=== PATIENT | female | born 1990 ===

== ENCOUNTER 2020-07-12 07:23 | Inpatient (IN) | payer SELFPAY ==
[2020-07-12] MEDS ORDERED: LACTATED RINGERS 1,000 ML ONE ×2 (08:09→10:21)
[2020-07-12] MEDS ORDERED: FAMOTIDINE 20 MG/2 ML INJ IV ONE ×2 (08:27→09:00)
--- NOTE | 2020-07-12 08:47 | Anesthesia Day of Surgery ---
Anesthesia Day of Surgery - Day of Surgery Patient Examined: Yes Patient H&P Reviewed: Yes Patient is NPO: Yes Beta Blockers: No Cardiac Clearance: No Pulmonary Clearance: No Nam's Test: N/A
--- NOTE | 2020-07-12 08:49 | Anesthesia Consultation ---
Anesthesia Consult and Med Hx Date of service: 07/12/20 - Airway Anesthetic Teeth Evaluation: Poor, Chipped ROM Head & Neck: Adequate Mental/Hyoid Distance: Adequate Mallampati Class: Class II Intubation Access Assessment: Possibly Difficult - Pulmonary Exam CTA: Yes - Cardiac Exam Cardiac Exam: RRR - Pre-Operative Health Status ASA Pre-Surgery Classification: ASA2, Emergency Proposed Anesthetic Plan: Spinal - Pre-Anesthesia Comment Pre-Anesthesia Comments: csection x2 . No anesthesia complications - Pulmonary Hx Smoking: No Hx Asthma: No Hx Respiratory Symptoms: No SOB: No COPD: No Home Oxygen Therapy: No Hx Pneumonia: No Hx Sleep Apnea: No - Cardiovascular System Hx Hypertension: No Hx Coronary Artery Disease: No Hx Heart Attack/AMI: No Hx Angina: No Hx Percutaneous Transluminal Coronary Angioplasty (PTCA): No Hx Cardia Arrhythmia: No Hx Pacemaker: No Hx Internal Defibrillator: No Hx Valvular Heart Disease: No Hx Heart Murmur: No Hx Peripheral Vascular Disease: No - Central Nervous System Hx Neuromuscular Disorder: No Hx Seizures: No CVA: No Hx Back Pain: Yes Hx Psychiatric Problems: No - Gastrointestinal Hx Ulcer: No Hx Gastroesophageal Reflux Disease: Yes - Endocrine Hx Renal Disease: No Hx End Stage Renal Disease: No Hx Cirrhosis: No Hx Liver Disease: No Hx Insulin Dependent Diabetes: No Hx Non-Insulin Dependent Diabetes: No Hx Thyroid Disease: No Hx Hypothyroidism: No Hx Hyperthyroidism: No - Hematic Hx Anemia: No Hx Sickle Cell Disease: No - Other Systems Hx Alcohol Use: No Hx Substance Use: No Hx Cancer: No Hx Obesity: Yes
[2020-07-12] MEDS ORDERED: ONDANSETRON 4 MG/2 ML INJ IV PRN (08:50)
[2020-07-12] MEDS ORDERED: NALOXONE 0.4 MG/1 ML INJ IV PRN ×2 (08:50→11:12)
[2020-07-12] MEDS ORDERED: HYDROmorphone 1 MG/1 ML INJ IV PRN (08:50)
[2020-07-12 08:56] LABS: Basophils # (Auto) 0.1 K/mm3 (0.0-0.1); Basophils % (Auto) 0.9 % (0.0-1.8); Eosinophils # (Auto) 0.1 K/mm3 (0.0-0.4); Eosinophils % (Auto) 0.8 % (0.0-4.3); Hematocrit 33.4 % (30.3-42.9); Hemoglobin 10.6 gm/dl (10.1-14.3); Lymphocytes # (Auto) 2.6 K/mm3 (1.2-5.4); Lymphocytes % (Auto) 23.4 % (13.4-35.0); Mean Corpuscular HGB Conc 32 % (30-34); Monocytes # (Auto) 0.5 K/mm3 (0.0-0.8); Monocytes % (Auto) 4.7 % (0.0-7.3); Platelet Count 363 K/mm3 (140-440); Red Cell Distribution Width 17.4 % (13.2-15.2)
[2020-07-12 08:57] LABS: Mean Corpuscular Volume 63 fl (79-97)
[2020-07-12] MEDS ORDERED: BICITRA ORAL LIQD 30ML PO ONE (09:00)
[2020-07-12] MEDS ORDERED: ceFAZolin/Water 2 GM/20 ML 2 GM/20 ML SYRINGE IV NR (09:00)
[2020-07-12] MEDS ORDERED: OXYTOCIN DRIP 30 UNITS/500 ML BAG IV SCH ×2 (09:00→12:00)
[2020-07-12] MEDS ORDERED: METOCLOPRAMIDE 10 MG/2 ML INJ IV ONE (09:00)
[2020-07-12] MEDS ORDERED: ONDANSETRON 4 MG/2 ML INJ ONE (09:02)
[2020-07-12] MEDS ORDERED: DEXMEDETOMIDINE 200 MCG/2 ML VIAL IV ONE (09:02)
[2020-07-12] MEDS ORDERED: BUPIVACAINE /DEX-WATER 0.75% (2 ML) AMPULE INFILTRATI ONE (09:03)
[2020-07-12] MEDS: LACTATED RINGERS 1,000 ML IV SCH ×2 (09:15→18:35)
--- NOTE | 2020-07-12 09:23 | History and Physical Report ---
History of Present Illness Date of examination: 07/12/20 Date of admission: 07/12/20 08:38 Chief complaint: previous sectionx2 History of present illness: 30yo at 39.6 weeks in active labor, previous c/sectionx2 Patient of [facility] PNR in chart Past History Past Surgical History: section Social history: no significant social history - Obstetrical History Expected Date of Delivery: 07/13/20 Actual Gestation: 39 Week(s) 6 Day(s) : 4 Para: 3 Medications and Allergies Allergies Allergy/AdvReac Type Severity Reaction Status Date / Time No Known Allergies Allergy Verified 07/12/20 07:36 Home Medications Medication Instructions Recorded Confirmed Last Taken Type Ibuprofen [Motrin] 600 mg PO Q8H PRN #60 tablet 07/12/20 Unknown Rx oxyCODONE /ACETAMINOPHEN [Percocet 1 tab PO Q6HR PRN #20 tablet 07/12/20 Unknown Rx 5/325] Active Meds: Active Medications Hydromorphone HCl (Dilaudid) 0.5 mg IV Q5M PRN PRN Reason: BREAK Lactated Ringer's (Lactated Ringers) 1,000 mls @ 2,250 mls/hr IV PREOP ARCHIE Stop: 07/13/20 09:27 Last Admin: 07/12/20 09:15 Dose: 2,250 mls/hr Documented by: Oxytocin/Sodium Chloride (Pitocin/Ns 30 Unit/500ml) 30 units in 500 mls @ 0 mls/hr IV TITR ARCHIE; Protocol Cefazolin Sodium (Ancef/Sterile Water 2 Gm/20 Ml) 2 gm in 20 mls @ 80 mls/hr IV PREOP NR; Protocol Stop: 07/12/20 23:59 Naloxone HCl (Naloxone) 0.2 mg IV Q2MIN PRN PRN Reason: Res Rate </= 8 or 02 SAT < 92% Ondansetron HCl (Zofran) 4 mg IV Q8H PRN PRN Reason: Nausea And Vomiting Sodium Chloride (Sodium Chloride Flush Syringe 10 Ml) 10 ml IV PRN NR Stop: 07/12/20 23:59 - Vital Signs Vital signs: Vital Signs Pulse BP 70 115/63 07/12/20 07:44 07/12/20 07:44 Temp Pulse Resp BP Pulse Ox 98.5 F 80 20 115/63 100 07/12/20 07:45 07/12/20 09:15 07/12/20 07:45 07/12/20 07:45 07/12/20 09:15 - Physical Exam Breasts: Positive: deferred Cardiovascular: Regular rate Abdomen: Positive: normal appearance, normal bowel sounds, rigidity Genitourinary (Female): Positive: normal external genitalia Vagina: Positive: normal moisture Anus/Rectum: Positive: normal perianal skin Deep Tendon Reflex Grade: Normal +2 - Obstetrical FHR: category 1 Uterine Contraction Monitor Mode: External Cervical Dilatation: 5 Cervical Effacement Percentage: 90 station: -2 Results Result Diagrams: 07/12/20 08:32 Abnormal lab results 07/12/20 Range/Units 08:32 WBC 11.2 H (4.5-11.0) K/mm3 RBC 5.30 H (3.65-5.03) M/mm3 MCV 63 L (79-97) fl MCH 20 L (28-32) pg RDW 17.4 H (13.2-15.2) % Seg Neutrophils % 70.2 H (40.0-70.0) % Seg Neutrophils # 7.8 H (1.8-7.7) K/mm3 All other labs normal. Assessment and Plan NPO, manager personal to OR for procedure patient declines surgical sterilization informed consent obtained Tiffani Mtz MD
[2020-07-12] MEDS ORDERED: BUPIVACAINE/PF (0.5%) 5 MG/1 ML 30 ML VIAL INFILTRATI ONE (10:03)
[2020-07-12] MEDS ORDERED: dexAMETHasone 20 MG/5 ML VIAL ONE (10:22)
--- NOTE | 2020-07-12 10:43 | Progress Note ---
Spinal Anesthesia Block - Spinal Anesthesia Block Start Time: 09:37 Stop Time: :42 Performed by:: ILDEFONSO MARTIN Procedure: Patient IDed, H&P reviewed, all questions and concerns were answered, and consent was signed. Timeout was performed at bedside. Patient in sitting position. Sterile prep and drape was performed. [3] ml of 1% lidocaine skin wheal at L[3]- L [4]. Needle introducer advanced. 25 gauge spinal needle advanced. Clear, free flowing CSF. negative blood, negative paresthesia. Spinal dose given. All needles removed. Patient tolerated procedure.
--- NOTE | 2020-07-12 10:51 | Procedure Note ---
OB Delivery Note - Delivery Date of Delivery: 07/12/20 Surgeon: GEOFF BOLES Estimated blood loss: other (600ml) - Section Preop diagnosis: repeat , other (previus c/sectionx2,active labor) Postop diagnosis: same section procedure: repeat low transverse Disposition: PACU Complications: other (uterine dehiscence) Narrative: Preop diagnosis: IUP at 39.6 weeks, previous sectionx2, active labor Postop diagnosis: Same,uterine dehiscence,dense pelvic adhesions Procedure: Repeat low transverse section via Pfannenstiel incision Surgeon: Dr. Geoff Boles Anesthesia spinal Complications none EBL 600 ml IV fluids 1100 mL Urine output 150 mL, clear Drains Mc to gravity Findings: Viable female with weight 3571gms and 9/9,dense pelvic adhesions with large uterine dehiscence in lower uterine segment normal fallopian tubes and ovaries bilaterally Procedure: Patient was consented in OB triage and taken to the operating room where she received excellent spinal anesthesia. She was then placed in the dorsal supine position with a leftward tilt. The abdomen was prepped and draped in a sterile fashion, and a timeout was verified. Adequate anesthesia was confirmed prior to the skin incision. A Pfannenstiel skin incision was made with a scalpel taken down to the underlying structures and the fascia was incised in the midline. The incision was extended laterally with curved Magaña scissors, the superior and inferior aspects of the fascial incisions were grasped with Akshat clamps and the rectus muscles dissected sharply. The abdomen was entered bluntly in the midline carried down inferiorly with good visualization of the bladder. A large uterine dehiscence was noted with visualization of the amnion at the lower uterine segment. The Bladder blade was inserted and the baby's head was delivered atraumatically through the hysterotomy. The remainder of the delivery was atraumatic, no nuchal cord. The cord was clamped and cut and baby handed to waiting NICU team. An intact placenta with three-vessel cord delivered manually. The uterus was then cleared of all clots and debris. Dense pelvic adhesions encountered did not allow exteriorization of the uterus. The uterine incision was closed with 3 layers of 0 chromic with excellent hemostasis. Hemoblast applied at hysterotomy site. There was no obvious delineation of peritoneum for closure. The rectus muscles approximated with 3-0 Vicryl, and the fascia closed with 0 Vicryl in the usual fashion. The subcuticular structures were closed with interrupted sutures of 3- 0 Vicryl and the skin closed with rani A pressure dressing was applied. All sponge needle and instrument counts were correct x2. There were no complications. Mom and baby stable to PACU. EBL 600mL patient advised that future pregnancies very likely will result in maternal/ with teleprinter in the OR room. Tiffani Boles MD
[2020-07-12] MEDS ORDERED: LANOLIN/ZINC/DIMETHICONE (LANSINOH) 7 GM TP PRN (11:12)
[2020-07-12] MEDS ORDERED: WITCH HAZEL/ GLYCERIN PAD TP PRN (11:12)
--- NOTE | 2020-07-12 11:44 | Progress Note ---
Subjective Date of service: 07/12/20 Principal diagnosis: Bilateral TAP Block for post op pain Interval history: Patient consented for TAP block for post surgical pain management. Patient identified, monitors placed, and time out performed. TAP identified bilaterally via ultrasound. Skin prepped bilaterally with [chlorhexidine] and [22g stimuplex] needle advanced to the TAP. [Marcaine 0.25% ] injected under ultrasound guidance on the [left] side. [Marcaine 0.25% ] injected under ultras ound guidance on the [right] side. Objective - Constitutional Vitals: Vital Signs - 12hr 07/12/20 07/12/20 07/12/20 07:44 07:45 07:50 Temperature 98.5 F Pulse Rate 70 83 83 Respiratory 20 Rate Blood Pressure 115/63 Blood Pressure 115/63 [Right] O2 Sat by Pulse 99 100 Oximetry 07/12/20 07/12/20 07/12/20 07:55 08:00 08:05 Temperature Pulse Rate 71 74 71 Respiratory Rate Blood Pressure Blood Pressure [Right] O2 Sat by Pulse 99 99 99 Oximetry 07/12/20 07/12/20 07/12/20 08:10 08:15 08:20 Temperature Pulse Rate 73 76 70 Respiratory Rate Blood Pressure Blood Pressure [Right] O2 Sat by Pulse 99 99 98 Oximetry 07/12/20 07/12/20 07/12/20 08:25 08:26 08:30 Temperature Pulse Rate 74 74 80 Respiratory Rate Blood Pressure Blood Pressure [Right] O2 Sat by Pulse 93 93 99 Oximetry 07/12/20 07/12/20 07/12/20 08:35 08:40 08:45 Temperature Pulse Rate 71 83 69 Respiratory Rate Blood Pressure Blood Pressure [Right] O2 Sat by Pulse 99 99 100 Oximetry 07/12/20 07/12/20 07/12/20 08:50 08:55 09:00 Temperature Pulse Rate 70 72 85 Respiratory Rate Blood Pressure Blood Pressure [Right] O2 Sat by Pulse 100 100 100 Oximetry 07/12/20 07/12/20 07/12/20 09:05 09:10 09:15 Temperature Pulse Rate 92 H 87 80 Respiratory Rate Blood Pressure Blood Pressure [Right] O2 Sat by Pulse 99 99 100 Oximetry 07/12/20 07/12/20 07/12/20 09:20 10:35 10:40 Temperature 97.5 F L Pulse Rate 94 H 50 L 49 L Respiratory 13 14 Rate Blood Pressure 154/86 129/73 Blood Pressure [Right] O2 Sat by Pulse 100 99 98 Oximetry 07/12/20 07/12/20 07/12/20 10:45 11:00 11:15 Temperature Pulse Rate 55 L 55 L 54 L Respiratory 14 13 12 Rate Blood Pressure 115/66 107/58 108/69 Blood Pressure [Right] O2 Sat by Pulse 98 98 98 Oximetry 07/12/20 11:30 Temperature Pulse Rate 55 L Respiratory 13 Rate Blood Pressure 104/63 Blood Pressure [Right] O2 Sat by Pulse 98 Oximetry - Labs CBC & Chem 7: 07/12/20 08:32 Labs: Abnormal lab results 07/12/20 Range/Units 08:32 WBC 11.2 H (4.5-11.0) K/mm3 RBC 5.30 H (3.65-5.03) M/mm3 MCV 63 L (79-97) fl MCH 20 L (28-32) pg RDW 17.4 H (13.2-15.2) % Seg Neutrophils % 70.2 H (40.0-70.0) % Seg Neutrophils # 7.8 H (1.8-7.7) K/mm3
--- NOTE | 2020-07-12 15:19 | Post Anesthesia Evaluation ---
- Post Anesthesia Evaluation Patient Participated: Yes Airway Patent: Yes Stable Respiratory Function: Yes Nausea/Vomiting: No Temp > 96.8F: Yes Pain Manageable: Yes Adequeate Hydration: Yes Anesthesia Complications: No Block Receding Appropriately: Yes Patient on Ventilator: No
[2020-07-12] MEDS: HYDROcodone/ACETAMINOPHEN 5-325 MG TAB PO PRN ×2 (16:11→21:11)
[2020-07-13 01:43] LABS: Hematocrit 30.5 % (30.3-42.9); Hemoglobin 9.5 gm/dl (10.1-14.3)
[2020-07-13] MEDS: HYDROcodone/ACETAMINOPHEN 5-325 MG TAB PO PRN ×3 (04:44→17:22)
[2020-07-13] MEDS ORDERED: DIPHtheria,PERTUSSIS(ACELL),TETANUS VACCINE/PF 0.5 ML VIAL IM ONE (06:00)
--- NOTE | 2020-07-13 12:22 | Progress Note ---
Assessment and Plan A: Postop Day 1 Stable P: Follow routine postop orders. Desires Depo prior to d/c Subjective - Subjective Date of service: 07/13/20 Patient reports: appetite normal, voiding normally, pain well controlled, flatus, ambulating normally : doing well, bottle feeding (and ) Objective - Vital Signs Latest vital signs: Vital Signs Temp Pulse Resp BP BP Pulse Ox 07/13/20 08:45 98 F 53 L 20 92/58 07/13/20 05:44 18 07/13/20 05:38 98.1 F 62 18 94/52 97 07/13/20 04:44 18 07/13/20 02:11 97.6 F 53 L 16 99/61 99 07/12/20 22:11 18 07/12/20 21:11 18 07/12/20 20:29 98.4 F 60 16 101/55 98 07/12/20 17:09 98.2 F 65 18 108/60 96 07/12/20 13:10 97.8 F 07/12/20 12:30 94.7 F L 54 L 16 103/67 99 Intake and Output 07/12/20 07/13/20 07/13/20 22:59 06:59 14:59 Intake Total 480 360 320 Output Total 800 1100 Balance -320 -740 320 Intake: Oral 240 360 320 Intake, Free Water 240 Output: Urine 800 1100 Indwelling Catheter 800 Void 1100 Other: Total, Intake Amount 240 360 320 Total, Output Amount 800 500 # Voids Void 800 - Exam Breasts: Present: normal Cardiovascular: Present: Regular rate, Normal S1, Normal S2 Lungs: Present: Clear to auscultation, Normal air movement Abdomen: Present: normal appearance, soft, normal bowel sounds Uterus: Present: normal, firm, fundal height below umbilicus Extremities: Present: normal Incision: Present: dry, dressed - Labs Labs: Abnormal lab results 07/12/20 07/12/20 Range/Units 01:15 EST 08:32 WBC 11.2 H (4.5-11.0) K/mm3 RBC 5.30 H (3.65-5.03) M/mm3 Hgb 9.5 L (10.1-14.3) gm/dl MCV 63 L (79-97) fl MCH 20 L (28-32) pg RDW 17.4 H (13.2-15.2) % Seg Neutrophils % 70.2 H (40.0-70.0) % Seg Neutrophils # 7.8 H (1.8-7.7) K/mm3
[2020-07-14] MEDS: HYDROcodone/ACETAMINOPHEN 5-325 MG TAB PO PRN (06:06)
--- NOTE | 2020-07-14 09:27 | Discharge Summary ---
Providers - Providers Date of Admission: 07/12/20 08:38 Date of discharge: 07/14/20 Attending physician: GEOFF BOLES MD Primary care physician: GEOFF BOLES MD Hospitalization Reason for admission: section Delivery: Procedure: repeat low transverse Episiotomy: none Laceration: none Incision: dressed (no drainage or bleeding noted) Other procedures: none complications: none Discharge diagnosis: IUP at term delivered baby: male Hospital course: See admission H & P; OB operative summary and PP progress notes Condition at discharge: Stable Disposition: DC-01 TO HOME OR SELFCARE - Discharge Diagnoses (1) Status post repeat low transverse section Status: Acute (2) Anemia Status: Acute Qualifiers: Anemia type: iron deficiency Comment: Asymptomatic Plan - Discharge Medications Prescriptions: Ibuprofen [Motrin] 600 mg PO Q8H PRN #60 tablet PRN Reason: Pain oxyCODONE /ACETAMINOPHEN [Percocet 5/325] 1 tab PO Q6HR PRN #20 tablet PRN Reason: Pain - Provider Discharge Summary Activity: routine, no sex for 6 weeks, no heavy lifting 4 weeks, no strenuous exercise Diet: other (Iron rich diet) Instructions: routine Additional instructions: [] Smoking cessation referral if applicable(refer to patient education folder for contact #) [] Refer to [facility] Booklet Call your doctor immediately for: * Fever > 100.5 * Heavy vaginal bleeding ( >1 pad per hour) * Severe persistent headache * Shortness of breath * Reddened, hot, painful area to leg or breast * Drainage or odor from incision. * Keep incision clean and dry at all times and follow doctor's instructions regarding bathing/showering * Continue daily oral iron supplementation as directed - Follow up plan Follow up: GEOFF BOLES MD [Primary Care Provider] - 7 Days
[2020-07-14 14:15] VITALS: BP 107/69
== END 2020-07-14 14:40 | disposition home or self-care (01) | DRG 788 ==
LOC: TRG 07:23 → APU 07:24 → TRG 08:38 → OB 14:28
PROVIDERS: ADMIT Obstetrics & Gynecology; ATTEND Obstetrics & Gynecology
PROC: 10D00Z1 Extraction of Products of Conception, Low, Open Approach (ICD-10-PCS; principal; 2020-07-12)
DX: O34.211 Maternal care for low transverse scar from previous cesarean delivery (principal); O00-O9A Pregnancy, childbirth and the puerperium; O99.891 Other specified diseases and conditions complicating pregnancy; N73.6 Female pelvic peritoneal adhesions (postinfective); Z37.0 Single live birth; Z3A.39 39 weeks gestation of pregnancy; Z20.828 Contact with and (suspected) exposure to other viral communicable diseases
CPT/HCPCS: 36415; 85014; 85018; 85025; 86592; 86706; 86762; 86850; 86900; 86901; 87806; 90471; 90715; G0378; J1100; J2405; J2765; J3490; J7120; U0003